=== PATIENT | female | born 1985 | race Caucasian/White ===

== ENCOUNTER 2017-03-26 06:13 | Emergency (ER) | payer SELFPAY ==
[~2017-03-26] VITALS: Ht 172.7 cm; Wt 77.3 kg
[~2017-03-26 06:13] MED LIST: ADDERALL20 MG PO; AUGMENTIN 875 M1 TAB PO; CEPHALEXIN500 M1 PO; HYCET SOLN PO; IUD; LORTAB 5/500 501 TAB PO; MIRENA52 MG IU; NAPROSYN500 MG PO; NO HOME MEDICATIONS; NORCO 325 MG-51 TAB PO; PENICILLIN V500 MG PO; PERIDEX (CHLOR480 ML MM; PRENATAL VITAMI1 TA5 PO; PRENATAL1 TA7 PO
[2017-03-26 06:21] VITALS: BP 149/99; PULSE 87; TEMP 98.4
[2017-03-26] MEDS ORDERED: ATARAX 25MG25 MG/TAB PO (07:17)
== END 2017-03-26 07:30 | disposition home or self-care (01) ==
LOC: COL.ER 06:13
DX: L98.9 Disorder of the skin and subcutaneous tissue, unspecified (principal); F15.10 Other stimulant abuse, uncomplicated; F41.9 Anxiety disorder, unspecified; R45.1 Restlessness and agitation

== ENCOUNTER 2022-03-20 08:47 | Inpatient (IN) | payer MEDICAID ==
[~2022-03-20] VITALS: Ht 172.7 cm; Wt 110.0 kg
[~2022-03-20 08:47] MED LIST changes: +ASPIRIN 81M81 MG/TA2 PO; +ATARAX 25MG25 MG/TAB PO; +DERMACINRX PRE1 EACH PO; +NORMODYNE200 MG PO
[2022-03-27] VITALS (14 sets, daily range): BP systolic 136–155; BP diastolic 65–92; PULSE 85–100
--- NOTE | 2022-03-27 20:00 | NUR ---
PT TO UNIT AMBULATORY WITH FAMILY FOR SCHEDULED NST. PT ORIENTED TO ROOM, VS OBTAINED, EFMX2 APPLIED, PLAN OF CARE EXPLAINED.
[2022-03-27 21:16] LABS: COLLECTION METHOD CLEAN CATCH
[2022-03-27 21:22] LABS: BASO % 0.2 % (0.0-2.0); EOS # 0.1 K/mm3 (0.0-0.7); EOS % 1.4 % (0.0-4.0); GRAN # 5.5 K/mm3 (1.4-6.5); GRAN % 65.8 % (42.2-75.2); HEMOGLOBIN 10.7 g/dl (12.5-16.0); LYMPH # 1.7 K/mm3 (1.2-3.4); LYMPH % 20.7 % (20.0-51.0); MEAN CELL VOLUME 81 fl (80.0-100.0); MEAN CORPUSCULAR HEMOGLOBIN 27 pg (27-31); MEAN CORPUSCULAR HGB CONC 33 g/dl (33.0-37.0); MEAN PLATELET VOLUME 9.8 fl (7.4-10.4); MONO # 0.9 K/mm3 (0.1-0.6); MONO % 10.9 % (1.7-9.3); PLATELET COUNT 228 K/mm3 (130-400); RED BLOOD COUNT 4.02 M/mm3 (4.10-5.30); REDCELL DISTRIBUTION WIDTH-CV 13.8 % (11.5-14.5)
[2022-03-27 21:23] LABS: HEMATOCRIT 32.6 % (37.0-47.0)
[2022-03-27 21:27] LABS: MUCOUS Present (NOT PRESENT); PH 6 (5-8); URINE APPEARANCE Hazy (CLEAR/HAZY); URINE BACTERIA Rare /hpf (NONE SEEN); URINE BILIRUBIN Negative (NEGATIVE); URINE BLOOD Negative (NEGATIVE); URINE COLOR Yellow (YELLOW); URINE GLUCOSE Negative (NEGATIVE); URINE KETONE Trace (NEGATIVE); URINE LEUKOCYTE ESTERASE Negative (NEGATIVE); URINE NITRATE Negative (NEGATIVE); URINE PROTEIN(semi-quant) Negative (NEGATIVE); URINE RBC 0-2 /hpf (0-2); URINE UROBILINOGEN Negative (NEGATIVE); URINE WBC 0-2 /hpf (0-2)
[2022-03-27 21:38] LABS: ALBUMIN 2.9 gm/dL (3.5-5.0); BILIRUBIN,TOTAL 0.3 mg/dL (0.2-1.2); CALCIUM 9.5 mg/dL (8.4-10.2); CREATININE, serum 0.66 mg/dL (0.57-1.11); POTASSIUM 4.2 mmol/L (3.5-4.5)
[2022-03-27 21:42] LABS: TRICYCLIC ANTIDEPRESS URINE NEGATIVE
[2022-03-28] VITALS (35 sets, daily range): BP systolic 134–192; BP diastolic 64–109; PULSE 77–121; TEMP 97.5–98.2
[2022-03-28] MEDS ORDERED: CHLOR TRIMETON 44 MG PO (00:48)
[2022-03-28] MEDS ORDERED: BENADRYL50 MG PO (00:48)
[2022-03-28] MEDS ORDERED: TYLENOL 500MG500 MG PO (00:49)
[2022-03-28] MEDS ORDERED: TUMS500 MG PO (00:50)
--- NOTE | 2022-03-28 01:45 | NUR ---
PT SITTING UP AT BEDSIDE FOR EPIDURAL PLACEMENT. DIFFICULTY TRACING CONTRACTIONS AND FHTs DUE TO MATERNAL POSITION. FM AUDIBLE, THIS NURSE ATTEMPTING TO HOLD MONITORING IN PLACE.
--- NOTE | 2022-03-28 02:15 | NUR ---
0142- PT SITTING UP IN BED FOR COMFORT, REQUESTING EPIDURAL AT THIS TIME. IVF BOLUS STARTED, Aileen SLAUGHTER CRNA NOTIFIED OF REQUEST AND WILL COME FOR PLACEMENT 0144- DIFFICULTY TRACING FHTs DUE TO MATERNAL POSITION, MATERNAL HR TRACING AT THIS TIME. THIS NURSE ATTEMPTING TO ADJUST US. 0154- Aileen SLAUGHTER CRNA IN ROOM FOR EPIDURAL PLACEMENT. CONTINUED DIFFICULTY TRACING FHTs, CURRENTLY TRACING MATERNAL HR. MOVEMENT AUDIBLE. 0211- TEST DOSE PLACED BY Aileen SLAUGHTER CRNA, PT TOLERATED WELL. CONTINUED DIFFICULTY TRACING CONTRACTIONS AND FHTs. MOVEMENT STILL AUDIBLE. 0217- PT REPOSITIONED INTO LEFT WEDGE FOLLOWING EPIDURAL PLACEMENT. FHTs NOW TRACING AT A BASELINE OF 135.
--- NOTE | 2022-03-28 04:45 | NUR ---
PT STATES FEELING INTENSE PRESSURE/PAIN IN HER VAGINA, PREVIOUS SVE OF 7CM. PT POSITIONED IN [facility], EPIDURAL BUTTON PUSHED BUT NO RELIEF AFTER APPROXIMATELY 10 MINUTES. Aileen SLAUGHTER CRNA CALLED TO COME DOSE EPIDURAL. SEE ANESTHESIA RECORD.
--- NOTE | 2022-03-28 05:20 | NUR ---
0457- L. AZEB SLAUGHTER DOSED EPIDURAL BUT PT CONTINES TO COMPLAIN OF INTENSE PAIN IN HER VAGINA. 0500- L. AZEB SLAUGHTER ATTEMPTING TO DOSE EPIDURAL AGAIN, DECELERATION AUDIBLE ON US. Genia HUNT, RN IN ROOM TO ASSIST WITH POSITION CHANGES. TURNED LEFT LATERAL, NO IMPROVEMENT. TURNED RIGHT LATERAL , IVF BOLUS STARTED, PITOCIN OFF. MONITOR HELD IN PLACE BY THIS NURSE, FHTs TRACE FOR APPROXIMATELY 1 MINUTE AT 120. 0505- SVE OF 8/100/-2. 0510- PT UNCONTROLLED, STATES SHE NEEDS TO PUSH. SVE OF COMPLETE. DR. MACHUCA ALREADY ON UNIT, IN ROOM AT THIS TIME FOR DELIVERY. 0515- DIFFICULTY TRACING FHTs WHILE PUSHING. THIS NURSE ATTEMPTS TO HOLD MONITOR IN PLACE. SPONTANEOUS VAGINAL DELIVERY OF VIABLE BABY GIRL. BABY TO MOTHER'S ABDOMEN. CORD CLAMPED BY DR. MACHUCA, CUT BUT PT'S SISTER. BABY CARES ASSUMED BY Leonel FLORES RN. 0520- SPONTANEOUS DELIVERY OF INTACT PLACENTA. PITOCIN STARTED PER PROTOCOL AT 333ML/HR. PERINUEM INTACT. 0530- RECOVERY STARTED.
--- NOTE | 2022-03-28 08:45 | NUR ---
PT REPORTS FULL SENSATION TO BLE. VITAL SIGNS STABLE. LOCHIA SCANT, NO CLOTS NOTED AT THIS TIME. ABLE TO RAISE AND HOLD LEGS APPRORPRIATELY. ASSISTED TO SITTING POSITION ON EDGE OF BED. DENIES DIZZINESS. VITAL SIGNS REMAIN STABLE. EPIDURAL CATHETER REMOVED FROM BACK. PT ASSISTED TO RESTROOM, SLOW STEADY GAIT NOTED. NEW GOWN, MESH UNDERWEAR, PAD, ICE PACK AND TE CARE ALL PROVIDED FOR PATIENT AT THIS TIME. TOLERATED ACTIVITY WELL. ASSISTED INTO WHEELCHAIR AND TO ROOM 215 TO CONTINUE WITH RECOVERY. PT EDUCATED TO NOTIFY STAFF PRIOR TO ANY FEEDS SO WE CAN COLLECT A BLOOD GLUCOSE LEVEL ON . ALSO EDUCATED THAT PER INDUSTRIAL BOILERMAKER RECOMMENDATIONS WE NEED TO CONTINUE WITH BOTTLE FEEDING UNTIL A UDS IS COLLECTED VIA INFANTS WEE BAG. PT AGREEABLE TO POC AND DENIES FURTHER QUESTIONS.
--- NOTE | 2022-03-28 10:45 | NUR ---
THIS NURSE ENTERS ROOM FOR ROUNDING. PT HAS INFANT AT BREAST. EDUCATED AND REMINDED TO CONTINUE WITH BOTTLE FEEDING UNTIL UDS IS RESULTED ON INFANT. PT AGREEABLE AND REQUESTING A BOTTLE.
--- NOTE | 2022-03-28 13:53 | NUR ---
MOTHER EDUCATED ON MULTIPLE ENCOUNTERS TO NOTIFY STAFF PRIOR TO FEEDS AND THAT PER PRINCIPAL PRODUCT MANAGER RECOMMENDATIONS, CONTINUE WITH BOTTLE FEEDS UNTIL INFANTS URINE IS ABLE TO BE OBTAINED FOR UDS. WEE BAG REMOVED PER MOM REPORT AT THIS TIME, THIS NURSE ASSESS AND WEE BAG IS OFF, AND HAS A WET DIAPER. NO URINE COLLECTED IN BAG. PT STATES SHE HAS FED THE BABY "TWICE" SINCE OUR LAST ENCOUNTER. PT ONCE AGAIN EDUCATED TO NOTIFY STAFF PRIOR TO FEEDS SO WE CAN COLLECT A BLOOD GLUCOSE LEVEL. PT NODS AND STATES SHE IS AGREEABLE TO POC. NEW WEE BAG PLACED AT THIS TIME.
--- NOTE | 2022-03-28 15:51 | NUR ---
PT AND INFANT SLEEPING AT THIS TIME. CONTENT AND ASLEEP IN CRIB. MOTHER REMINDED TO NOTIFY STAFF WHEN SHE IS READY TO BOTTLE FEED NEXT AND WE WILL GET A BLOOD GLUCOSE LEVEL AND PROVIDE A BOTTLE. MOTHER NODS. NO FURTHER NEEDS AT THIS TIME.
--- NOTE | 2022-03-28 16:25 | NUR ---
CURRENT WEE BAG DRY, NO URINE IN DIAPER. MOTHER REQUESTING BOTTLE. AC BG OBTAINED, 60. BOTTLE PROVIDED AND ATTEMPTED. INFANT CONTINUES TO FALL ASLEEP THROUGHOUT FEED ATTEMPT.
--- NOTE | 2022-03-28 17:08 | NUR ---
PT FOUND ASLEEP IN BED HOLDING . THIS NURSE EDUCATES THOROUGHLY ON IMPORTANCE OF PLACING INFANT IN CRIB IF PT IS GOING TO BE ASLEEP DUE TO FATIGUE AND SAFETY PRECAUTIONS. PT REFUSES FOR THIS NURSE TO PUT INFANT IN CRIB AT THIS TIME AND ACNKNOWLEDGES THAT SHE UNDERSTANDS THE EDUCATION PROVIDED. PT STATES SHE IS GOING TO "WATCH TV FOR AWHILE" AND REQUESTS TO CONTINUE TO HOLD .
--- NOTE | 2022-03-28 17:30 | NUR ---
PT AWAKE SITTING UP IN BED, SAFELY HOLDING AND BONDING WITH
--- NOTE | 2022-03-28 18:40 | NUR ---
Report recieved. Visitor at bedside per off going nurse.
--- NOTE | 2022-03-28 19:30 | NUR ---
To room at this time for VS and assessment. Upon entering room to return from being in the [facility] for cares, pt yells, "Where is my nurse? I have been trying to find her." I responded with, "I am your nurse dyan. My name is Lacie. My aplogies, I know that another nursed named Marika was in here at about 1900 to get for cares. How may I help you?" Pt then screams at me while vigerously shoving on her ID bracelet, "I have to get this off. It is way to tight." I informed the patient that I would print a new band and replace it. I proceeded with VS and assessment. Motrin administered. Discussed stagering the Motrin and Tylenol because "cramps are out of control." Patient agreeable to attempt this plan for medication management at this time. A bottle was provided to feed infant per instructor bridge's request. Patient then yells, "This makes no sense. I have never heard of this. I have never been told I cannot brestfeed." Patient continued to repeat this multiple times while assessment was completed. Instructed her BP was elevated and she needed to lay back and take deep breaths to calm down. Patient then yells at this nurse, "I have never heard of this." I informed the pt that not was the pediatrian's order and that once the 's urine drug screen results were available. Patient switched her attention to her mom and told her, "this was all because of my urine drug screen from when I was in the hospital for a UTI." Patient continues to argue with this staff nurse at which time, I informed the patient that I would let her know as soon as I had the UDS results back.
--- NOTE | 2022-03-28 20:00 | NUR ---
Informed she can breastfeed per the senior [employer]soft consultant.
[2022-03-29 06:29] LABS: HEMATOCRIT 29.3 % (37.0-47.0); HEMOGLOBIN 9.1 g/dl (12.5-16.0)
[2022-03-29 07:40] VITALS: BP 160/90; PULSE 76; TEMP 98
[2022-03-29 11:28] VITALS: BP 150/94; PULSE 80; TEMP 97.9
--- NOTE | 2022-03-29 13:05 | NUR ---
Oil Treater consulted; Sophie RN notifies this Oil Treater that patient reported to therapeutic mentor possible homelessness. Oil Treater attempted to meet with patient; her sister and another family member at bedside. Patient is agreeable to meet with this Oil Treater this afternoon, after family visit. Oil Treater to re-attempt to meet with patient to assess for information/resources and possible homelessness.
--- NOTE | 2022-03-29 14:19 | NUR ---
KATARZYNA, SOCIAL WORK BY TO VISIT WITH PATIENT AT THIS TIME AND ASSIST WITH DISCHARGE RESOURCES AND INFORMATION. SEE PROGRESS NOTE.
--- NOTE | 2022-03-29 14:38 | NUR ---
Store Stock Help met with patient, who is observed to be and nurturing her child. She is willing to speak, and she presents alert and oriented, calm. Patient states this is her 5th child, she has 4 other children. Three are in temporary custody, at her request, of her sister Aislinn with whom she is currently residing in [place], [place] at sister's home. She states the other child, her 15 year old son, is currently in DCF custody, "Not because of my parenting, but because of our homelessness and his behaviors." She states her field nurse case manager with [employer] is Katerine, and she has unsupervised visits with her son. She states she had been with her 3-year-old in detention in [phone], and when she was released she was housed, until her "greedy landlord" forced her eviction in 2019. She lived for months with her mother, here in [place], but her mother "is drunk and narcissistic" and kicked her out in April/2020. She has since been living between friends' homes until she settled with her sister currently in [place]. She states her first 3 children have the same father, a different father for the other two children. She describes her 's father as "not able to understand parenting," despite having learned he has 10 other children. She states he did not come to her , though he did show up at the hospital to visit. She observed he seemed "disconnected" and describes he is physically present but not emotionally or financially supportive. She did not wish to have him listed on her 's certificate; she doubts he will have concern "It's his problem." She is currently insured through Medicaid, has food stamps and WIC. She is familiar with the Health Department services and does not have a primary care physician, but plans to ask her sister Aislinn for a referral as she is a nurse. She states her home with Aislinn is "safe" for she and her , repeating this throughout the discussion several times. She informs she can pass a drug screen, and she does smoke approximately two cigars a day "Not in the car with her" referring to her child. She is on numerous subsidized housing lists throughout [place], and [place], [place]. She is approximately #100-#200 on the waitlist as she needs a home large enough for she and her 5 children. 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 She was previously seeing a therapist when she had stable housing but has not been able to connect since, "I don't feel I have the time." She expresses interest in reconnecting. She states her plan at discharge is to get her car; her sister is bringing it up with her child's installed car seat and she will drive back to [place]. Her sister has been staying in a hotel locally while she's been in the hospital. This Store Stock Help gently introduces idea of contact to DCF for mandated reporting with the goal of helping her to move more quickly through the system and achieve housing more quickly. She states she has been connected with [facility] support services for a year when her daughter had a head injury and was treated at a hospital in [place], and she felt "They were actually really helpful." She verbalizes awareness that she will be reported with the goal of supportive services to she and her child at discharge. "That's fine," and she verbalizes understanding they will likely follow up with her. She shares her current address and telephone number at her sister's home where she can be reached at discharge, noting her address on file is her mother's home here in [place] and does not want mother involved in her own or her child's care. Sophie NETTLES is updated. This Social Work reviews patient chart, noting she presented to the hospital in November this year, while , for fever and had a UDS positive for marijuana, methamphetamines, and amphetamines. A CPS report # [id number] was completed that date and patient referred to [facility], locally. This Store Stock Help to complete CPS report this date on behalf of patient and child.
--- NOTE | 2022-03-29 15:25 | NUR ---
Cabin Equipment Supervisor completed CPS report #[id number] this date.
[2022-03-29 17:02] VITALS: BP 161/85; PULSE 80; TEMP 98.2
--- NOTE | 2022-03-29 19:00 | NUR ---
Report recieved. Sitting up in bed . Motrin adminsitered. Updated whiteboard and reviewed POC.
[2022-03-29 20:30] VITALS: BP 156/81; PULSE 84; TEMP 97.9
[2022-03-29 23:30] VITALS: BP 140/86
[2022-03-30 08:12] VITALS: BP 154/84; PULSE 82; TEMP 98.4
[2022-03-30 12:24] VITALS: BP 149/99; PULSE 82; TEMP 98
--- NOTE | 2022-03-30 12:24 | NUR ---
PT SITTING UP IN BED EATING LUNCH. DENIES PAIN. REFUSES PO TYLENOL/MOTRIN. TALKATIVE AND IN GOOD SPIRITS. BP 149/99. PT STATES "I HAVE HAD HIGH BLOOD PRESSURE FOR OVER 10 YEARS, I JUST ALWAYS RUN HIGH." PT EDUCATED ON HYPERTENSION DURING AND AFTER , WELL RISKS. WILL NOTIFY PHYSICIAN OF CONTINUED HIGH BP'S DURING AFTERNOON ROUNDS.
[2022-03-30] MEDS ORDERED: TRANDATE 200MG200 MG PO (13:14)
--- NOTE | 2022-03-30 14:15 | NUR ---
ALL DC PAPERWORK REVIEWED AND UNDERSTOOD. INFANT TO SEE POLE INCISOR OPERATOR IN [place], [place] IN 2 DAYS. CONFIRMED WITH THAT APPOINTMENT IS SET UP AND POLE INCISOR OPERATOR IS ESTABLISHED. ALL MEDS REVIEWED. LOCHIA REMAINS SCANT. PT DISCUSSES HYPERTENSION WITH WELL MONITORING AND MEDS. PT TO KEEP A BP JOURNAL AND CALL OFFICE WITH UPDATE. ALL BELONGINGS ACCOUNTED FOR. NO FURTHER QUESTIONS OR CONCERNS AT THIS TIME.
== END 2022-03-30 14:15 | disposition home or self-care (01) | DRG 807 ==
LOC: LDR 03-27 08:46 → OB 03-27 19:35
PROVIDERS: ADMIT Obstetrics & Gynecology
PROC: 10E0XZZ Delivery of Products of Conception, External Approach (ICD-10-PCS; principal; 2022-03-28)
PROC: 10907ZC Drainage of Amniotic Fluid, Therapeutic from Products of Conception, Via Natural or Artificial Opening (ICD-10-PCS; 2022-03-28)
DX: O10.92 Unspecified pre-existing hypertension complicating childbirth (principal); Z37.0 Single live birth; O90.81 Anemia of the puerperium; D64.9 Anemia, unspecified; Z3A.38 38 weeks gestation of pregnancy
CPT/HCPCS: J2400; J2590; J2795; J7120